=== PATIENT | female | born 1960 | race American Indian/Alaskan Native ===

== ENCOUNTER 2019-01-06 09:19 | Emergency (ER) | payer MEDICARE, OTHER ==
[2019-01-06 09:24] VITALS: BP 127/80
[2019-01-06] MEDS ORDERED: BICILLIN L-A IM ONE (09:33)
[2019-01-06] MEDS ORDERED: IBUPROFEN PO ONE (09:33)
--- NOTE | 2019-01-06 09:38 | Emergency Department Report ---
ED Fever HPI - General Chief Complaint: Pain General Stated Complaint: HURT ALL OVER Time Seen by Provider: 01/06/19 09:27 Source: patient Exam Limitations: no limitations - History of Present Illness Initial Comments: Mrs. Aldana is a 58-year-old female with history of asthma, anxiety who presents with subjective fever and chills right ear pain and sore throat. She has diffuse body aches especially in her joints. Lightheadedness. She works in a fast food restaurant. Her PCP is Dr. Raza. Timing/Duration: other (1 day) Fever Severity/Quality: subjective Fever Therapy COOLER OPERATOR: none Associated Symptoms: muscle aches, sore throat, other (joint pain) ED Review of Systems ROS: Stated complaint: HURT ALL OVER Other details as noted in HPI Constitutional: chills. denies: fever, malaise ENT: ear pain, throat pain Respiratory: denies: cough, shortness of breath Cardiovascular: denies: chest pain Gastrointestinal: denies: abdominal pain, nausea, vomiting Musculoskeletal: arthralgia, myalgia ED Past Medical Hx - Past Medical History Previous Medical History?: Yes Hx Congestive Heart Failure: No Hx Diabetes: No Hx Psychiatric Treatment: Yes (ANXIETY) Hx Asthma: Yes Hx COPD: No - Surgical History Additional Surgical History: HYSTERECTOMY. RIGHT SHOULDER - Social History Smoking Status: Never Smoker Substance Use Type: None - Medications Home Medications: Home Medications Medication Instructions Recorded Confirmed Last Taken Type Butalbital/Acetaminophen 1 each PO DAILY 07/15/15 07/15/15 07/15/15 History [Butalbital-Acetaminophn 50-325] LORazepam [Ativan] 0.5 mg PO TID 07/15/15 07/15/15 07/15/15 History Sertraline [Zoloft] 100 mg PO QDAY 07/15/15 07/15/15 07/15/15 History Aspirin EC 81 mg PO QDAY #30 tablet. 07/19/15 Unknown Rx Famotidine [Pepcid] 20 mg PO BID #60 tablet 07/19/15 Unknown Rx Ranolazine ER [Ranexa ER] 500 mg PO BID #60 tablet 07/19/15 Unknown Rx Ibuprofen [Motrin 400 MG tab] 400 mg PO QID 12 Days #3 tablet 01/06/19 Unknown Rx ED Physical Exam - General Limitations: No Limitations General appearance: alert, in no apparent distress, other (nontoxic healthy appearing) - Head Head exam: Present: atraumatic, normocephalic - Eye Eye exam: Present: normal appearance - ENT ENT exam: Present: TM's normal bilaterally, other (edematous erythematous tonsils not touching uvula symmetric in size normal voice) - Neck Neck exam: Present: normal inspection - Respiratory Respiratory exam: Present: normal lung sounds bilaterally. Absent: respiratory distress, wheezes, rales - Cardiovascular Cardiovascular Exam: Present: regular rate, normal rhythm, normal heart sounds. Absent: systolic murmur, diastolic murmur, rubs, gallop - GI/Abdominal GI/Abdominal exam: Present: soft, normal bowel sounds. Absent: distended, t enderness, guarding, rebound - Extremities Exam Extremities exam: Present: normal inspection - Back Exam Back exam: Present: normal inspection - Neurological Exam Neurological exam: Present: alert, oriented X3, normal gait - Psychiatric Psychiatric exam: Present: normal affect, normal mood - Skin Skin exam: Present: warm, dry, intact, normal color. Absent: rash ED Course Vital Signs 01/06/19 09:22 Temperature 99.6 F Pulse Rate 105 H Respiratory 20 Rate Blood Pressure 127/80 O2 Sat by Pulse 99 Oximetry ED Medical Decision Making - Medical Decision Making Mrs. Tobin has the clinical diagnosis of streptococcal pharyngitis. She was treated in the emergency department with ibuprofen, IM Bicillin and IM dexamethasone. Recommended supportive therapy. Discharged home in stable condition. I have prescribed ibuprofen tablets. Critical care attestation.: If time is entered above; I have spent that time in minutes in the direct care of this critically ill patient, excluding procedure time. ED Disposition Clinical Impression: Strep throat Disposition: DC-01 TO HOME OR SELFCARE Is pt being admited?: No Does the pt Need Aspirin: No Condition: Stable Instructions: Strep Throat (ED) Prescriptions: Ibuprofen [Motrin 400 MG tab] 400 mg PO QID 12 Days #3 tablet Forms: Work/School Release Form(ED)
[2019-01-06] MEDS ORDERED: TENIVAC IM ONE (10:00)
[2019-01-06] MEDS ORDERED: DECADRON PO ONE (10:28)
== END 2019-01-06 10:36 | disposition home or self-care (01) ==
LOC: ED 09:19
DX: J02.0 Streptococcal pharyngitis (principal); H92.01 Otalgia, right ear; R50.9 Fever, unspecified; F41.9 Anxiety disorder, unspecified; J45.909 Unspecified asthma, uncomplicated; Z90.710 Acquired absence of both cervix and uterus; Z79.899 Other long term (current) drug therapy; Z79.82 Long term (current) use of aspirin; Z88.6 Allergy status to analgesic agent
CPT/HCPCS: 90471; 90714; 96372; 99282; J0561; J8540

== ENCOUNTER 2019-01-27 09:40 | Emergency (ER) | payer MEDICARE ==
[2019-01-27 09:52] VITALS: BP 112/76
--- NOTE | 2019-01-27 11:21 | Emergency Department Report ---
ED Lower Extremity HPI - General Chief Complaint: Extremity Injury, Lower Stated Complaint: RT KNEE INJURY Time Seen by Provider: 01/27/19 11:05 Source: patient Mode of arrival: Ambulatory Limitations: No Limitations - History of Present Illness Initial Comments: Mrs. Aldana is a pleasant 58-year-old female presents with right foot pain and right knee pain after fall yesterday. She fell onto hard concrete pavement. . She has bruise at her right knee. She had severe pain at the lateral portion of the right foot. She has questioned the bedside. Ibuprofen 400 mg tablets improved her pain. Complaint: foot injury -: Sudden, Last night Injury: Knee: Right, Foot: Right Type of Injury: blunt Place: home Severity: severe Improves With: NSAID Worsens With: weight bearing Context: fall, direct blow Associated Symptoms: able to partially bear weight Treatments Prior to Arrival: NSAIDS, other (crutches) - Related Data Home Medications Medication Instructions Recorded Confirmed Last Taken Butalbital/Acetaminophen 1 each PO DAILY 07/15/15 07/15/15 07/15/15 [Butalbital-Acetaminophn 50-325] LORazepam [Ativan] 0.5 mg PO TID 07/15/15 07/15/15 07/15/15 Sertraline [Zoloft] 100 mg PO QDAY 07/15/15 07/15/15 07/15/15 Previous Rx's Medication Instructions Recorded Last Taken Type Aspirin EC [Halfprin EC] 81 mg PO QDAY #30 tablet. 07/19/15 Unknown Rx Famotidine [Pepcid] 20 mg PO BID #60 tablet 07/19/15 Unknown Rx Ranolazine ER [Ranexa ER] 500 mg PO BID #60 tablet 07/19/15 Unknown Rx Ibuprofen [Motrin 400 MG tab] 400 mg PO QID 12 Days #3 tablet 01/06/19 Unknown Rx HYDROcodone/APAP 5-325 [[place] 1 each PO Q6HR PRN #15 tablet 01/27/19 Unknown Rx 5/325] Allergies Allergy/AdvReac Type Severity Reaction Status Date / Time codeine AdvReac Vomiting Verified 01/06/19 09:21 ED Review of Systems ROS: Stated complaint: RT KNEE INJURY Other details as noted in HPI Constitutional: denies: fever, malaise Neurological: denies: numbness, paresthesias ED Past Medical Hx - Past Medical History Previous Medical History?: Yes Hx Congestive Heart Failure: No Hx Diabetes: No Hx Headaches / Migraines: Yes Hx Psychiatric Treatment: Yes (ANXIETY) Hx Asthma: Yes Hx COPD: No - Surgical History Additional Surgical History: HYSTERECTOMY. RIGHT SHOULDER - Social History Smoking Status: Never Smoker Substance Use Type: None - Medications Home Medications: Home Medications Medication Instructions Recorded Confirmed Last Taken Type Butalbital/Acetaminophen 1 each PO DAILY 07/15/15 07/15/15 07/15/15 History [Butalbital-Acetaminophn 50-325] LORazepam [Ativan] 0.5 mg PO TID 07/15/15 07/15/15 07/15/15 History Sertraline [Zoloft] 100 mg PO QDAY 07/15/15 07/15/15 07/15/15 History Aspirin EC [Halfprin EC] 81 mg PO QDAY #30 tablet. 07/19/15 Unknown Rx Famotidine [Pepcid] 20 mg PO BID #60 tablet 07/19/15 Unknown Rx Ranolazine ER [Ranexa ER] 500 mg PO BID #60 tablet 07/19/15 Unknown Rx Ibuprofen [Motrin 400 MG tab] 400 mg PO QID 12 Days #3 tablet 01/06/19 Unknown Rx HYDROcodone/APAP 5-325 [[place] 1 each PO Q6HR PRN #15 tablet 01/27/19 Unknown Rx 5/325] ED Physical Exam - General Limitations: No Limitations General appearance: alert, in no apparent distress - Head Head exam: Present: atraumatic, normocephalic - Eye Eye exam: Present: normal appearance. Absent: scleral icterus, conjunctival injection - ENT ENT exam: Absent: mucous membranes moist - Neck Neck exam: Present: normal inspection, full ROM - Extremities Exam Extremities exam: Present: other (right knee: Small abrasion hematoma no deformity no tenderness) - Expanded Lower Extremity Exam Right Foot/Toe exam: Present: tenderness, swelling, tenderness at base of 5th metatarsal. Absent: abrasion, laceration, ecchymosis, deformity, crepidus Neuro vascular tendon exam: Present: no vascular compromise - Neurological Exam Neurological exam: Present: alert, oriented X3 - Psychiatric Psychiatric exam: Present: normal affect, normal mood - Skin Skin exam: Present: warm, dry, intact, normal color ED Course Vital Signs 01/27/19 09:50 Temperature 98.2 F Pulse Rate 64 Respiratory 18 Rate Blood Pressure 112/76 O2 Sat by Pulse 100 Oximetry ED Lower Extremity MDM - Radiology Data Radiology results: image reviewed Fracture at the base of the fifth metatarsal right foot radiographs 3 views no displacement and no other abnormality - Medical Decision Making Fifth metatarsal foot fracture right posterior splintwas applied to the affected extremity under my supervision. After application the extremity was neurovascularly intact with acceptable alignment. Right knee hematoma contusion Provided crutches Referred to orthopedic surgeon. Prescribed [place] Critical care attestation.: If time is entered above; I have spent that time in minutes in the direct care of this critically ill patient, excluding procedure time. ED Disposition Clinical Impression: Fracture of fifth metatarsal bone, Knee contusion Disposition: TO HOME OR SELFCARE Is pt being admited?: No Does the pt Need Aspirin: No Condition: Stable Instructions: Foot Fracture in Adults (ED), Splint Care (ED) Additional Instructions: You have a fracture of the fifth metatarsal in your right foot. Please see orthopedic surgeon within 1 week. Prescriptions: HYDROcodone/APAP 5-325 [[place] 5/325] 1 each PO Q6HR PRN #15 tablet PRN Reason: Pain Referrals: JANESSA HALLMAN MD [Staff Physician] - 3-5 Days Forms: Work/School Release Form(ED)
[2019-01-27] MEDS ORDERED: NORCO 5/325 PO ONE (11:27)
--- NOTE | 2019-01-27 11:27 | XRay Report ---
Right foot, 3 views INDICATION: injury/swelling. COMPARISON: None. IMPRESSION: There is mild nonspecific soft tissue swelling on the dorsum of the foot distally. No ac mcgrath osseous findings or joint pathology is identified. No significant DJD. Signer Name: Isaiah Richards Jr, MD Signed: 01/27/2019 11:23 AM Workstation Name: [id number]
== END 2019-01-27 11:53 | disposition home or self-care (01) ==
LOC: ED 09:40
DX: S92.351A Displaced fracture of fifth metatarsal bone, right foot, initial encounter for closed fracture (principal); S80.01XA Contusion of right knee, initial encounter; F41.9 Anxiety disorder, unspecified; G43.909 Migraine, unspecified, not intractable, without status migrainosus; J45.909 Unspecified asthma, uncomplicated; Z90.710 Acquired absence of both cervix and uterus; Z79.899 Other long term (current) drug therapy; Z88.6 Allergy status to analgesic agent; W17.89XA Other fall from one level to another, initial encounter; Y93.89 Activity, other specified; Y92.89 Other specified places as the place of occurrence of the external cause; Y99.8 Other external cause status